=== PATIENT | female | born 1955 | race Caucasian/White ===

== ENCOUNTER 2017-10-13 15:33 | Emergency (ER) | payer BC, OTHER ==
[2017-10-13] MEDS: KETOROLAC 30 MG INJ IM (16:00)
[2017-10-13] MEDS: DOXYCYCLINE 100 MG TAB PO (17:24)
== END 2017-10-13 17:38 | disposition home or self-care (01) ==
LOC: FTE 15:33
DX: M70.42 Prepatellar bursitis, left knee (principal); Y93.89 Activity, other specified; Z87.891 Personal history of nicotine dependence
CPT/HCPCS: 29505; 73564; 96372; 99284-25